=== PATIENT | female | born 1980 | race Caucasian/White ===

== ENCOUNTER 2018-03-21 16:24 | Outpatient (RCR) | payer OTHER ==
--- NOTE | 2018-02-07 17:18 | PT INITIAL EVALUATION ---
MEDICAL DIAGNOSIS: B hip pain TREATMENT DIAGNOSIS: Same, low back pain with radiating pain DATE OF ONSET: 02/08/16 SUBJECTIVE: Rose Rashid presents to physical therapy with complaints of B hip pain and low back pain with radiating pain down her R LE that started approximately 2 years ago with no mechanism of injury. She reports that the pain has gotten worse over the last 6 months and is now interrupting her current sleep. She reports that her pain becomes worse with sitting, walking, in the PM, and as the day progresses. She reports that her pain becomes better with standing and in the am. She denies any changes in gait and bladder control. She denies any surgeries or accidents. She denies unexplained weight loss, increased pain with cough, sneeze, or strain. She reports that she does have night pain. Pain location is R gluteal fold, R groin (anterior hip), and L gluteal fold, B IT band and described as . Pain scale is 5 on a ten point pain scale. REHAB PROBLEM LIST: Increased Pain Decreased ROM Decreased Endurance Decreased Function Decreased Gait PREVIOUS MEDICAL HISTORY: See EMR OCCUPATION: Student at OBJECTIVE: Posture: She demonstrated B rounded shoulders, increased thoracic kyphosis, and decreased lumbar lordosis. ROM: Trunk AROM: flexion: NIL with muscular end feel. extension: NIL with muscular end feel. side gliding R: NIL with painful end feel. side gliding L: NIL with painful end feel. Palpation: Anterior, posterior and lateral with pain that radiates to the upper leg and knee along the anterior and lateral side and often goes down into the R foot. Sensation: Intact L2-S2 Special Tests: Repeated extension: stretch sensation during the test and better following the test with increased trunk AROM in all directions. Repeated extension with overpressure: stretch sensation during the test and better following with increased trunk AROM in all directions. Mobility: Independent Gait: No gait mechanics noted ASSESSMENT: Rose will benefit from skilled physical therapy to address the listed impairments to improve function and QOL. Based on examination, her provisional classification is posterior derangement that responded well to extension based principles. Short Term Goals 1 week: Pt will be independent with her specific exercise to improve function and QOL. 2 weeks: Pt will demonstrate centralized low back pain to improve function and QOL. 4 weeks: Pt will demonstrated abolished low back pain and return to prior level of function to improve function and QOL. Patient's Goals reduce pain and get back to working out PLAN: Patient to be seen for Manual Therapy/STM/MET Strengthening/condition Range of Motion Spinal Stabilization Work Hardening/Cond Stretching Neuromuscular Re-ed Closed Chain Program Posture/Body mechanics Home Exercise Program Therapeutic Activities 2x/Week for 6 Weeks If you have any questions, comments, or concerns about this report or plan, please contact me at . Thank you, Eddi Miranda, PT, DPT MTDD
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
[~2018-03-21 16:24] MED LIST: AMIT-104 PO; AZIT-17 PO; BELL30LI MC; BISA-71 PO; BUS5 PO; CALC-1046; CALC-18 PO; CETI-260 PO; CETI10CA8 PO; CHOL200021 PO; CHOL500045 PO; CITA-145 PO; CLIN25GE3 TP; DULO60CA56 PO; GLUC100026 PO; HYDR-4309 PO; IRON18TA2 PO; LAN15; LAN30PT PO; LANS15TA13 PO; LEVO-85 PO; LOPE2CAP15 PO; LORA-1455 PO; LORA10CA3 PO; MULT-817 PO; MULT1CAP59 PO; NAPR220C12 PO; NITR-105 PO; Nasal Spray; ONDA4TAB PO; ONDA4TAB9 PO; OXYC-865 PO; OXYC1TAB54 PO; PER PO; PHEN16.215 PO; PHEN200T32 PO; PNEU0.5D3 IM; POLY17PO25 PO; PRE10 PO; PRED-1 PO; PRED-314 PO; PRED-420 PO; PRED20TA6 PO; PREG150C33 PO; PRO25 PO; SODI45SP NS; TIZA4CAP3 PO; VALA100059 PO; [UNRECOGNIZED DRUG - CODE] SQ; [UNRECOGNIZED DRUG - OTHER]
[2018-03-26] MEDS ORDERED: MONT10TA PO (16:16)
[2018-03-26] MEDS ORDERED: HYDR-385 PO (16:22)
--- NOTE | 2018-04-30 16:24 | PT PLAN OF CARE ---
Physician: Sandee Marsh APRN SOCIAL INSURANCE ANALYST-c Patient is being seen: [arthur [email or web address].PTF] Therapist: [arthur DEL CID.THER3] Medical Diagnosis: B hip pain Treatment Diagnosis: Same, low back pain with radiating pain Date of Onset: 02/08/16 Date of Initial Evaluation: 02/07/18 Date patient was last seen: 03/21/18 Number of treatments: 9 Number of cancellations/No shows: [*] INTERVENTIONS: Manual Therapy/STM/MET Strengthening/condition Range of Motion Spinal Stabilization Work Hardening/Cond Stretching Neuromuscular Re-ed Closed Chain Program Posture/Body mechanics Home Exercise Program Therapeutic Activities GOALS: 1 week: Pt will be independent with her specific exercise to improve function and QOL. MET 2 weeks: Pt will demonstrate centralized low back pain to improve function and QOL. MET 4 weeks: Pt will demonstrate abolished low back pain and return to prior level of function to improve function and QOL. NOT Met 5 weeks: Pt will be independent with her specific neck exercise to improve function and QOL. Met 6 weeks: Pt will demonstrate centralized neck pain to improve function and QOL. MET 8 weeks: Pt will demonstrate abolished neck pain and return to prior level of function to improve function and QOL. Not MET PATIENT'S GOAL: reduce pain and get back to working out Status of Patient's Goals: Progressing well Patient Compliance: Good Prognosis: Excellent Reasons for continuing therapy: This is a discharge note for Rose Rashid. She has progressed well with her low back pain and currently demonstrates centralized low back pain that continues to resolve. Furthermore, she demonstrated improvements with cervical pain centralizing; however, it has yet to abolish. She continues to be independent on her home specific exercises. As a result, she will be discharged from PT. Posture: She demonstrated B rounded shoulders, mild forward head, increased thoracic kyphosis, and decreased lumbar lordosis. ROM: Trunk AROM: flexion: NIL with muscular end feel. extension: NIL with muscular end feel. side gliding R: NIL with painful end feel. side gliding L: NIL with painful end feel. Cervical AROM: protrusion: NIL with muscular stretch. flexion: NIL with dizziness/head, retraction: NIL with muscular end feel. extension: minimal restriction with painful end feel. lateral flexion R: minimal restriction with painful end feel. lateral flexion L: NIL with muscular end feel. rotation R: NIL with muscular end feel. rotation L: NIL with muscular end feel. Strength: C4, C5, C6, C7, T1: 5/5 (B). Palpation: R/L PSIS, C5-T1 spinous progress, radiating pain down into T4-8 spinous/facet and rhomboids regions. Special Tests: Lumbar Spine: Repeated extension: stretch sensation during the test and better following the test with increased trunk AROM in all directions. Repeated extension with overpressure: stretch sensation during the test and better following with increased trunk AROM in all directions. Cervical Spine: Repeated RET: stretch during the test and better following the test with potential centralization. Repeated Extension: stretch during the test and same following the test. Repeated RET with Extension: stretch during the test and better following the test with centralization. Repeated flexion: stretch during the test the worse following the test with peripheralization. Mobility: Independent If you have any question, please contact me at [phone]. Thank you, Eddi Miranda, PT, DPT BRADY
== END 2018-03-21 18:00 | disposition home or self-care (01) ==
LOC: PT 16:24
PROVIDERS: ATTEND Nurse Practitioner Family
DX: M25.551 Pain in right hip (principal); M54.16 Radiculopathy, lumbar region; M54.2 Cervicalgia
CPT/HCPCS: 97162

== ENCOUNTER → 2018-03-26 | Outpatient (CLI) | payer OTHER ==
[~2018-03-26] MED LIST changes: +HYDR-385 PO; +MONT10TA PO
== END ==
LOC: LAB 16:22
PROVIDERS: ATTEND Nurse Practitioner Family
DX: M25.551 Pain in right hip (principal); M25.552 Pain in left hip; M79.641 Pain in right hand; M79.642 Pain in left hand; R21 Rash and other nonspecific skin eruption
CPT/HCPCS: 36415; 86038; 86200; 86225; 86430

== ENCOUNTER → 2018-03-26 | Outpatient (CLI) | payer OTHER ==
--- NOTE | 2018-03-26 17:16 | RADIOLOGY IMAGING REPORT ---
FACILITY: [facility] PATIENT NAME: Rose Rashid : 1980 MR: [id number] V: [id number] EXAM DATE: ORDERING PHYSICIAN: ANTHONY KELLEY TECHNOLOGIST: Location: [facility] - [place] Patient: Rose Rashid : 1980 Visit/Account:[id number] Date of Sevice: 03/26/2018 Exam type: HIPS BILATERAL History: bilateral hip pain and stiffness Comparison: None. Findings: Two views of each hip reveal no evidence of fracture, dislocation or significant arthritic change. N o lytic or blastic bone lesions are seen IMPRESSION: 1. No osteoarticular abnormality of the hip joints are seen Report Dictated By: Kay Norwood MD at 03/26/2018 5:10 PM Report E-Signed By: Kay Norwood MD at 03/26/2018 5:13 PM WSN:[email or web address]
--- NOTE | 2018-03-26 17:18 | RADIOLOGY IMAGING REPORT ---
FACILITY: [facility] PATIENT NAME: Rose Rashid : 1980 MR: [id number] V: [id number] EXAM DATE: ORDERING PHYSICIAN: ANTHONY KELLEY TECHNOLOGIST: Location: [facility] [place] Patient: Rose Rashid : 1980 Visit/Account:[id number] Date of Sevice: 03/26/2018 Exam type: HAND LIMITED RIGHT History: Bilateral hand pain, started two years ago, getting worse Comparison: Left hand performed today. Findings: Two views of the right hand reveal no evidence of significant arthritis, fracture, dislocation, lytic or blastic bone lesion. IMPRESSION: 1. No osteoarticular abnormality of the right hand is seen Report Dictated By: Kay Norwood MD at 03/26/2018 5:13 PM Report E-Signed By: Kay Norwood MD at 03/26/2018 5:15 PM WSN:[email or web address]
--- NOTE | 2018-03-26 17:20 | RADIOLOGY IMAGING REPORT ---
FACILITY: [facility] - [place] PATIENT NAME: Rose Rashid : 1980 MR: [id number] V: [id number] EXAM DATE: ORDERING PHYSICIAN: ANTHONY KELLEY TECHNOLOGIST: Location: [facility] Patient: Rose Rashid : 1980 Visit/Account:[id number] Date of Sevice: 03/26/2018 Exam type: HAND LIMITED LEFT History: Bilateral hand pain, started two years ago Comparison: Right hand performed today. Findings: Two views the left hand reveal no evidence of significant arthritis, fracture or dislocation. There is a suggestion of a small subchondral cyst along the base of the left second metacarpal. No aggress barby appearing bone lesions are seen IMPRESSION: 1. Suggestion of a small subchondral cyst along the base of the left second metacarpal Report Dictated By: Kay Norwood MD at 03/26/2018 5:15 PM Report E-Signed By: Kay Norwood MD at 03/26/2018 5:17 PM WSN:[email or web address]
== END ==
LOC: RAD 16:37
PROVIDERS: ATTEND Nurse Practitioner Family
DX: Z02.9 Encounter for administrative examinations, unspecified (principal)
CPT/HCPCS: 73522

== ENCOUNTER 2018-05-16 01:15 | Emergency (ER) | payer OTHER ==
[2018-05-16] MEDS ORDERED: MONT4TAB PO (01:28)
--- NOTE | 2018-05-16 01:30 | ER Report ---
History and Physical Time Seen By MD: 01:29 Hx. of Stated Complaint: pt reports a crohns flare up, pain in R side abdomen "like its attacking my entire abdomen," vomiting, nausea, diarrhea HPI/ROS CHIEF COMPLAINT: crohn's flareup HISTORY OF PRESENT ILLNESS: This is a 37 year old female. She started having pain consistent with what she has had with prior crohn's flare-ups. This is mainly in the right side of the abdomen, often colicky in nature. Has had some diarrhea, without blood. Nausea and vomiting as well. No fevers or chills. Normal urination. No chest pain or shortness of breath. Has not started on any medications yet. Nothing makes it worse or better. Allergies: Coded Allergies: kiwi (Verified Allergy, Severe, FACIAL SWELLING/HIVES, 04/19/17) Cephalexin Monohydrate (Verified Allergy, Intermediate, HIVES, 04/19/17) Penicillins (Verified Allergy, Intermediate, HIVES, 04/19/17) Uncoded Allergies: DECONGESTANTS (Allergy, Mild, TREMORS/SHAKES, 04/16/15) Home Meds Active Scripts Promethazine Hcl (PROMETHAZINE HCL) 25 Mg Tablet, 25 MG PO Q8H Y for NAUSEA, # 20 TAB 0 Refills Prov:MARIBELL OLIVAREZ MD 05/16/18 Prednisone (PREDNISONE) 20 Mg Tablet, 20 MG PO QDAY, #12 TAB 0 Refills Take 60mg once a day for 5 days. If symptoms flare up again, begin a prednisone taper. Prov:MARIBELL OLIVAREZ MD 05/16/18 Ondansetron (ZOFRAN ODT) 4 Mg Tab.rapdis, 4 MG PO Q6H Y for NAUSEA/VOMITING, # 20 TAB.MICHAEL 0 Refills Prov:MARIBELL OLIVAREZ MD 05/16/18 Oxycodone Hcl/Acetaminophen (PERCOCET 5-325 MG TABLET) 1 Each Tablet, 1 EACH PO Q4H Y for PAIN, #15 TAB 0 Refills Prov:MARIBELL OLIVAREZ MD 05/16/18 Montelukast Sodium (SINGULAIR) 10 Mg Tablet, 1 TAB PO QDAY, #90 TAB 1 Refill Prov:ANTHONY KELLEY APRNP-C 05/06/18 Reported Medications Montelukast Sodium 4 Mg Chew Tab (SINGULAIR 4 MG CHEW TAB) 4 Mg Tab.chew, 1 TAB PO QDAY, TAB.CHEW 05/16/18 [Nasal Chester] No Conflict Check 02/04/18 Loperamide HCl (Imodium A-D) 2 Mg Capsule, 1 CAP PO PRN Y for DIARRHEA 02/04/18 Multivitamin (MULTIVITAMINS) 1 Each Capsule, 1 EACH PO, CAPSULE 10/01/16 Naproxen Sodium (ALEVE) 220 Mg Capsule, 220 MG PO TID Y for PRN, CAPSULE 01/23/16 Lansoprazole (PREVACID) 15 Mg Tab.rap.dr, PO QDAY 05/06/15 Discontinued Reported Medications Cetirizine Hcl (ZYRTEC) 10 Mg Capsule, 10 MG PO QDAY, CAPSULE 02/04/18 Discontinued Scripts Hydrocodone Bit/Acetaminophen (HYDROCODON-ACETAMINOPHEN 5-325) 1 Each Tablet, 1 TAB PO Q6H Y for PAIN, #30 TAB 0 Refills Prov:ANTHONY KELLEY APRN 03/26/18 Valacyclovir Hcl (VALACYCLOVIR) 1,000 Mg Tablet, 2 TAB PO BID, #8 TAB 2 Refills take 2 tabs morning and evening for one day at the first sign of a cold sore Prov:ANTHONY KELLEY APRN 02/04/18 Clindamycin Phos/Benzoyl Perox (BENZACLIN GEL) 25 Gm Gel..gram., 1 RACHAEL TP DAILY , #50 GM 3 Refills Use a pea sized amount to apply a thin layer to affected areas once daily - discontinue after 12 weeks of use Prov:ANTHONY KELLEY APRN 02/04/18 Reviewed Nurses Notes: Yes Hx Smoking: No Smoking Status: Never Smoker, Former Smoker Exposure to Second Hand Smoke?: Yes Hx Substance Use Disorder: No Hx Alcohol Use: Yes (RARE) Constitutional Vital Sign - Last 24 Hours 05/16/18 01:19 Temp 98.8 Pulse 70 Resp 18 B/P (MAP) 132/84 Pulse Ox 97 O2 Delivery Room Air Physical Exam General Appearance: The patient is alert. No acute distress. Eyes: Pupils are equal, round. No pallor, injection or icterus. ENT: Mucous membranes are moist. Normal oral mucosa. Posterior oropharynx is normal. Neck: Supple and non tender. Respiratory: Lungs are clear to auscultation. Cardiovascular: Regular rate and rhythm. No murmurs, gallops or rubs. Gastrointestinal: Abdomen is soft, tender in right abdomen, somewhat worse in the right lower. Nondistended. Guarding, but no rebound. No masses or organomegaly. Neurological: Alert and oriented x3. Skin: Warm and dry. No rashes. DIFFERENTIAL DIAGNOSIS: After history and physical exam, differential diagnosis was considered for abdominal pain, likely Crohn's disease, cannot rule out other causes at this time. Medical Decision Making Data Points Result Diagram: 05/16/18 0128 05/16/18 0128 Laboratory Hematology Test 05/16/18 01:28 Red Blood Count 4.63 M/uL (4.17-5.56) Mean Corpuscular Volume 90.7 fL (80.0-96.0) Mean Corpuscular Hemoglobin 31.0 pg (26.0-33.0) Mean Corpuscular Hemoglobin Concent 34.2 g/dL (32.0-36.0) Red Cell Distribution Width 14.0 % (11.5-14.5) Mean Platelet Volume 8.2 fL (7.2-11.1) Neutrophils (%) (Auto) 61.5 % (39.4-72.5) Lymphocytes (%) (Auto) 28.4 % (17.6-49.6) Monocytes (%) (Auto) 6.1 % (4.1-12.4) Eosinophils (%) (Auto) 3.0 % (0.4-6.7) Basophils (%) (Auto) 1.0 % (0.3-1.4) Nucleated RBC Relative Count (auto) 0.0 /100WBC Neutrophils # (Auto) 7.1 K/uL (2.0-7.4) Lymphocytes # (Auto) 3.3 K/uL (1.3-3.6) Monocytes # (Auto) 0.7 K/uL (0.3-1.0) Eosinophils # (Auto) 0.3 K/uL (0.0-0.5) Basophils # (Auto) 0.1 K/uL (0.0-0.1) Nucleated RBC Absolute Count (auto) 0.00 K/uL Erythrocyte Sedimentation Rate 11 mm/HOUR (0-20) Sodium Level 135 mmol/L (137-145) Potassium Level 3.9 mmol/L (3.5-5.0) Chloride Level 105 mmol/L (98-107) Carbon Dioxide Level 21 mmol/L (22-31) Blood Urea Nitrogen 13 mg/dl (7-18) Creatinine 0.70 mg/dl (0.52-1.04) Glomerular Filtration Rate Calc > 60.0 Random Glucose 100 mg/dl (75-110) Calcium Level 9.0 mg/dl (8.4-10.2) Total Bilirubin 0.4 mg/dl (0.2-1.3) Aspartate Amino Transf (AST/SGOT) 18 U/L (0-35) Alanine Aminotransferase (ALT/SGPT) 23 U/L (0-56) Alkaline Phosphatase 65 U/L (0-126) C-Reactive Protein 0.5 mg/dl (<1.0) Total Protein 7.1 g/dl (6.3-8.2) Albumin 3.9 g/dl (3.5-5.0) Amylase Level 79 U/L (0-110) Lipase 56 U/L (23-300) Chemistry Test 05/16/18 01:28 White Blood Count 11.5 k/uL (4.5-11.0) Red Blood Count 4.63 M/uL (4.17-5.56) Hemoglobin 14.4 g/dL (12.0-16.0) Hematocrit 42.0 % (34.0-47.0) Mean Corpuscular Volume 90.7 fL (80.0-96.0) Mean Corpuscular Hemoglobin 31.0 pg (26.0-33.0) Mean Corpuscular Hemoglobin Concent 34.2 g/dL (32.0-36.0) Red Cell Distribution Width 14.0 % (11.5-14.5) Platelet Count 348 K/uL (150-450) Mean Platelet Volume 8.2 fL (7.2-11.1) Neutrophils (%) (Auto) 61.5 % (39.4-72.5) Lymphocytes (%) (Auto) 28.4 % (17.6-49.6) Monocytes (%) (Auto) 6.1 % (4.1-12.4) Eosinophils (%) (Auto) 3.0 % (0.4-6.7) Basophils (%) (Auto) 1.0 % (0.3-1.4) Nucleated RBC Relative Count (auto) 0.0 /100WBC Neutrophils # (Auto) 7.1 K/uL (2.0-7.4) Lymphocytes # (Auto) 3.3 K/uL (1.3-3.6) Monocytes # (Auto) 0.7 K/uL (0.3-1.0) Eosinophils # (Auto) 0.3 K/uL (0.0-0.5) Basophils # (Auto) 0.1 K/uL (0.0-0.1) Nucleated RBC Absolute Count (auto) 0.00 K/uL Erythrocyte Sedimentation Rate 11 mm/HOUR (0-20) Glomerular Filtration Rate Calc > 60.0 Calcium Level 9.0 mg/dl (8.4-10.2) Total Bilirubin 0.4 mg/dl (0.2-1.3) Aspartate Amino Transf (AST/SGOT) 18 U/L (0-35) Alanine Aminotransferase (ALT/SGPT) 23 U/L (0-56) Alkaline Phosphatase 65 U/L (0-126) C-Reactive Protein 0.5 mg/dl (<1.0) Total Protein 7.1 g/dl (6.3-8.2) Albumin 3.9 g/dl (3.5-5.0) Amylase Level 79 U/L (0-110) Lipase 56 U/L (23-300) ED Course/Re-evaluation Clinical Indication for ER IV: Hydration, IV Access ED Course Discussed with the patient. She is pretty certain this is a Crohn's flare. We obtained lab work and gave her a liter of normal saline, as well a milligram of Dilaudid, 4 mg of Zofran IV, and Solu-Medrol 125 mg IV. She had significant improvement. White count is slightly elevated but no left shift. Offered to do CT scan to rule out appendicitis and other causes versus pain management and steroids. She would like to pursue the pain management and steroids and will return for reevaluation and imaging if not improving or worsening. Decision to Disposition Date: May 16, 2018 Decision to Disposition Time: 02:18 Depart Departure Latest Vital Signs Vital Signs Date Time Temp Pulse Resp B/P (MAP) Pulse Ox O2 Delivery O2 Flow Rate FiO2 05/16/18 01:19 98.8 70 18 132/84 97 Room Air Impression: Primary Impression: Crohns disease Condition: Improved Disposition: HOME OR SELF-CARE Referrals: ANTHONY KELLEY APRN INK TECHNICIAN-C (PCP) New Scripts Promethazine Hcl (PROMETHAZINE HCL) 25 Mg Tablet 25 MG PO Q8H Y for NAUSEA, #20 TAB 0 Refills Prov: MARIBELL OLIVAREZ MD 05/16/18 Prednisone (PREDNISONE) 20 Mg Tablet 20 MG PO QDAY, #12 TAB 0 Refills Take 60mg once a day for 5 days. If symptoms flare up again, begin a prednisone taper. Prov: MARIBELL OLIVAREZ MD 05/16/18 Ondansetron (ZOFRAN ODT) 4 Mg Tab.rapdis 4 MG PO Q6H Y for NAUSEA/VOMITING, #20 TAB.MICHAEL 0 Refills Prov: MARIBELL OLIVAREZ MD 05/16/18 Oxycodone Hcl/Acetaminophen (PERCOCET 5-325 MG TABLET) 1 Each Tablet 1 EACH PO Q4H Y for PAIN, #15 TAB 0 Refills Prov: MARIBELL OLIVAREZ MD 05/16/18 Patient Instructions: Crohn Disease (ED) Additional Instructions: Take Prednisone 20mg tablet, take 3 tablets once a day for 5 days. You can then stop. If symptoms flare up again, then fill the second prescription for a tapering dose. Take Percocet 5/325, one every 4 hours as needed for pain. Take Zofran 4mg, one every 6 hours as needed for nausea. You can alternatively take Phenergan 25mg, one every 8 hours as needed for nausea. Problem Qualifiers Primary Impression: Crohns disease Gastrointestinal tract location: unspecified location Digestive disease complication type: without complication Qualified Codes: K50.90 - Crohn's disease, unspecified, without complications MARIBELL OLIVAREZ MD May 16, 2018 01:30
[2018-05-16] MEDS ORDERED: ONDANSETRON 4 MG/2 ML VIAL IVP ONE (01:35)
[2018-05-16] MEDS ORDERED: methylPREDNIS SUCC 125 MG/2ML IVP ONE (01:35)
[2018-05-16] MEDS ORDERED: HYDROmorphone* 1 MG/ML 1 MG/ML ML IVP ONE (01:35)
[2018-05-16] MEDS ORDERED: NS(*) 0.9% 1000 ML BAG 1,000 ML IV ONE (01:35)
[2018-05-16 01:42] LABS: PLATELET COUNT, AUTOMATED 348 K/uL (150-450)
[2018-05-16] MEDS ORDERED: predniSONE 20 MG TAB PO ONE (02:20)
[2018-05-16] MEDS ORDERED: ONDANSETRON 4 MG ODT TH SL ONE (02:20)
[2018-05-16] MEDS ORDERED: oxyCODONE/ACETAMIN 5/325MG TH 2 TAB/BOTTLE PO ONE (02:20)
[2018-05-16] MEDS ORDERED: PRED20TA6 PO (02:23)
[2018-05-16] MEDS ORDERED: PROM-110 PO (02:23)
[2018-05-16] MEDS ORDERED: ONDA4TAB PO (02:23)
[2018-05-16] MEDS ORDERED: OXYC-865 PO (02:23)
[2018-05-16 02:30] VITALS: BP 114/79
== END 2018-05-16 02:40 | disposition home or self-care (01) ==
LOC: ER 01:52
DX: K50.919 Crohn's disease, unspecified, with unspecified complications (principal)
CPT/HCPCS: 82150; 83690; 85025; 85651; 86140; 96361; 96374; 96375; 99284; J1170; J2405; J2930; J7030; J7512; S0119; 82040; 82247; 82310; 82374; 82435; 82565; 82947; 84075; 84132; 84155; 84295; 84450; 84460; 84520

== ENCOUNTER → 2018-07-04 | Outpatient (CLI) | payer OTHER ==
[~2018-07-04] MED LIST changes: +MONT4TAB PO; +PROM-110 PO
== END ==
LOC: LAB 13:39
PROVIDERS: ATTEND Nurse Practitioner Family
DX: M25.549 Pain in joints of unspecified hand (principal)
CPT/HCPCS: 36415; 84550

== ENCOUNTER → 2018-08-19 | Outpatient (CLI) | payer OTHER ==
[~2018-08-19] MED LIST changes: +FLU60VIA41 IM; -HYDR-4309 PO; +HYDR-653 PO
--- NOTE | 2018-08-19 18:10 | RADIOLOGY IMAGING REPORT ---
FACILITY: [facility] PATIENT NAME: Rose Rashid : 1980 MR: [id number] V: [id number] EXAM DATE: ORDERING PHYSICIAN: ANTHONY KELLEY TECHNOLOGIST: Location: [facility] [place] Patient: Rose Rashid : 1980 Visit/Account:[id number] Date of Sevice: 08/19/2018 Exam type: HAND COMPLETE RIGHT History: right hand pain Comparison: Limited right hand series March 26, 2018. Findings: Three views of the right hand reveal no gross evidence of acute fracture dislocation involving the ri ght hand. No significant arthritic changes are seen IMPRESSION: 1. No acute osteoarticular abnormality the right hand is seen Report Dictated By: Kay Norwood MD at 08/19/2018 6:05 PM Report E-Signed By: Kay Norwood MD at 08/19/2018 6:07 PM WSN:[email or web address]
== END ==
LOC: RAD 16:56
PROVIDERS: ATTEND Nurse Practitioner Family
DX: M79.641 Pain in right hand (principal); M25.531 Pain in right wrist

== ENCOUNTER → 2018-10-02 | Outpatient (CLI) | payer OTHER ==
[2018-10-02 14:47] LABS: PLATELET COUNT, AUTOMATED 370 K/uL (150-450)
== END ==
LOC: LAB 14:23
PROVIDERS: ATTEND Nurse Practitioner Family
DX: N93.8 Other specified abnormal uterine and vaginal bleeding (principal)
CPT/HCPCS: 36415; 84443; 85025

== ENCOUNTER → 2018-10-31 | Outpatient (CLI) | payer OTHER ==
--- NOTE | 2018-10-31 11:24 | RADIOLOGY IMAGING REPORT ---
FACILITY: [facility] - [place] PATIENT NAME: Rose Rashid : 1980 MR: [id number] V: [id number] EXAM DATE: ORDERING PHYSICIAN: ZUNILDA PHILLIPS TECHNOLOGIST: Location: [facility] Patient: Rose Rashid : 1980 Visit/Account:[id number] Date of Sevice: 10/31/2018 PELVIC HISTORY: Irregular menses TECHNIQUE: Transvaginal and transabdominal ultrasound pelvis. COMPARISON: CT abdomen pelvis August 22, 2016 FINDINGS: Uterus: ; 10.2 cm length x 4.6 cm AP x 4.4 cm transverse. Myometrium: There is a 2.9 cm anterior fundal fibroid. Endometrium: Arcuate; double thickness 1.1 mm. Cervix: Nabothian cysts. Ovaries: Right - 3.2 x 2.4 x 2.7 cm Left - 2.6 x 2.6 x 2.4 cm. The left ovary contains a 2.1 x 1.6 x 0.8 cm cyst Blood flow is documented in each ovary by duplex Doppler ultrasound. Adnexa: Grossly unremarkable. Free pelvic fluid: None. IMPRESSION: 2.9 cm anterior fundal fibroid Nabothian cysts 2.1 cm left ovarian cyst Report Dictated By: Kay Norwood MD at 10/31/2018 11:15 AM Report E-Signed By: Kay Norwood MD at 10/31/2018 11:20 AM WSN:[email or web address]
--- NOTE | 2018-11-01 15:43 | RADIOLOGY IMAGING REPORT ---
FACILITY: [facility] - [place] PATIENT NAME: VIVI HERNANDEZ : [id number] MR: [id number] V: [id number] EXAM DATE: [id number] ORDERING PHYSICIAN: ZUNILDA PHILLIPS TECHNOLOGIST: Michelle Jacques RDMS PROCEDURE:US RIGHT BREAST COMPARISON:None. INDICATIONS:BREAST PAIN, LUMP FINDINGS: There is a cluster of cysts identified in the 9, 10 & 11 o'clock position of the Right breast. The largest measures approximately 9mm in diameter. No abnormal finding was identified in the 2 o'clock position location of patient's palpable findings therefore clinical follow-up recommended. DIAGNOSTIC CATEGORY 2--BENIGN FINDING. RECOMMENDATIONS: CLINICAL EVALUATION. IMPRESSION: BIRADS 2: Benign finding. 1. Clinical follow-up recommended for patient's palpable findings in the 2 o'clock position of the Right breast. 2. Multiple Right breasts cysts also noted. Dictated by: Kay Norwood M.D. on 10/31/2018 at 16:48 Transcribed by: MARISELA on 11/01/2018 at 8:31 Approved by: Kay Norwood M.D. on 11/01/2018 at 15:42 [facility]
--- NOTE | 2018-11-01 15:43 | RADIOLOGY IMAGING REPORT ---
[place] [facility] [place] NAME: VIVI HERNANDEZ : [id number] MR: [id number] V: [id number] EXAM DATE: ORDERING PHYSICIAN: ZUNILDA PHILLIPS TECHNOLOGIST: Payton Farah PROCEDURE:BILATERAL DIAGNOSTIC DIGITAL MAMMOGRAM WITH CAD ASSISTED INTERPRETATION & 3D TOMOSYNTHESIS COMPARISON:None. INDICATIONS:BREAST PAIN, RT BREAST LUMP FINDINGS: The breasts are heterogeneously dense which can obscure small masses. There is no demonstration of malignant appearing mass, or calcifications in either breast. Clinical follow-up recommended for patient's palpable finding in the 2 o'clock position of the Right breast. DIAGNOSTIC CATEGORY 2--BENIGN FINDING. RECOMMENDATIONS: CLINICAL EVALUATION. IMPRESSION: BIRADS 2: Benign finding. Clinical follow-up recommended for patient's palpable findings in the 2 o'clock position of the Right breast. Dictated by: Kay Norwood M.D. on 10/31/2018 at 16:51 Transcribed by: MARISELA on 11/01/2018 at 8:26 Approved by: Kay Norwood M.D. on 11/01/2018 at 15:42 [facility]
== END ==
LOC: MAMO 01:32
PROVIDERS: ATTEND Obstetrics & Gynecology
DX: D25.1 Intramural leiomyoma of uterus (principal); N63.10 Unspecified lump in the right breast, unspecified quadrant; N64.4 Mastodynia; N88.8 Other specified noninflammatory disorders of cervix uteri; N83.202 Unspecified ovarian cyst, left side; N92.6 Irregular menstruation, unspecified
CPT/HCPCS: 76856; 77062; 77066

== ENCOUNTER → 2019-04-10 | Outpatient (CLI) | payer OTHER ==
[~2019-04-10] MED LIST changes: +IOPAMIDOL 76% 100 ML INFUS BTL 0 ML ONE
== END ==
LOC: RAD 11:29
PROVIDERS: ATTEND Nurse Practitioner Family
DX: R10.31 Right lower quadrant pain (principal)
CPT/HCPCS: Q9967

== ENCOUNTER → 2019-04-14 | Outpatient (CLI) | payer OTHER ==
[~2019-04-14] MED LIST changes: -IOPAMIDOL 76% 100 ML INFUS BTL 0 ML ONE; +IOPAMIDOL 76% 100 ML INFUS BTL 100 ML ONE
--- NOTE | 2019-04-14 16:25 | RADIOLOGY IMAGING REPORT ---
FACILITY: [facility] - [place] PATIENT NAME: Rose Rashid : 1980 MR: [id number] V: [id number] EXAM DATE: ORDERING PHYSICIAN: ANTHONY KELLEY TECHNOLOGIST: Location: [facility] Patient: Rose Rashid : 1980 Visit/Account:[id number] Date of Sevice: 04/14/2019 EXAMINATION: CT Abdomen W/O Contrast CT Abdomen W/ Contrast CT Pelvis W/O Contrast CT Pelvis W/ Contrast 04/14/2019 3:00 PM HISTORY: Crohn's disease. Right lower quadrant pain. TECHNIQUE: Spiral scans were obtained through the abdomen and pelvis before and during injection of nonionic iodinated intravenous contrast. Contrast: 75 mL of IV Isovue 370. One of the following dose optimization techniques was utilized in the performance of this exam: Autom ated exposure control; adjustment of the mA and/or kV according to the patient's size; or use of an i terative reconstruction technique. Specific details can be referenced in the facility's radiology C T exam operational policy. COMPARISON STUDIES: 08/22/2016. FINDINGS: Liver / biliary: Incidental focal fat or perfusional variation in the left lobe along the fissure for ligamentum teres. Pancreas: negative Spleen: negative Adrenal glands: negative Kidneys / retroperitoneum: negative Pelvic structures: Incidentally the uterus is anteverted. Current images do not as well show appa rent arcuate configuration as the previous. Small nabothian cyst. No ovarian or adnexal pathology b y CT. Bowel / peritoneum / mesenteries: Mildly thickened appearance of the TI with suggestion of subtle haz ing of periserosal fat. No perforation, fistula, or abscess evident. Moderate fecal volume in the c olon. No distal impaction. Vessels: negative Musculoskeletal / Body wall: negative Lymph node assessment: negative Lower chest: negative IMPRESSION: 1. Mild inflammatory thickening of the TI consistent with the history of Crohn's. No perforation, f istula, abscess, or other complication evident. 2. Otherwise unremarkable study. Report Dictated By: Israel Fernandez MD at 04/14/2019 4:11 PM Report E-Signed By: Israel Fernandez MD at 04/14/2019 4:20 PM WSN:[email or web address]
== END ==
LOC: CT 00:49
PROVIDERS: ATTEND Nurse Practitioner Family
DX: R10.31 Right lower quadrant pain (principal)
CPT/HCPCS: 74178; Q9967

== ENCOUNTER → 2019-05-05 | Outpatient (CLI) | payer OTHER ==
[~2019-05-05] MED LIST changes: -IOPAMIDOL 76% 100 ML INFUS BTL 100 ML ONE; +TIZA2CAP3 PO
== END ==
LOC: LAB 14:44
PROVIDERS: ATTEND Nurse Practitioner Family
DX: R10.9 Unspecified abdominal pain (principal)
CPT/HCPCS: 81001